=== PATIENT | male | born 1995 | race African-American/Black ===

== ENCOUNTER 2018-05-01 09:47 | Emergency (ER) | payer SELFPAY ==
[~2018-05-01] VITALS: Ht 180.3 cm; Wt 108.0 kg
[2018-05-01] MEDS ORDERED: Ketorolac 60mg Inj IM ONE (10:15)
[2018-05-01] MEDS ORDERED: CYCLOBENZAPRINE10 MG ORAL (10:23)
[2018-05-01] MEDS ORDERED: LIDOCAINE700 M1 TP (10:23)
[2018-05-01 10:43] VITALS: BP 127/65
--- NOTE | 2018-05-01 12:18 | Emergency Room Report ---
History of Present Illness General Chief Complaint: Lower Extremity Injury Source: Significant Other Present Illness HPI Patient is a 23-year-old male brought in by self after increased left-sided lower extremity pain as well as low back pain. Patient reported having injury several days ago in which he was bending down in the shower and subsequently felt a pop in his back. He reports having increased discomfort to his back as well as to his left leg. Patient reported having recent antibiotic use after sore throat. He denies any fever. He denies any weakness to his extremities. Patient had been reportedly drinking alcohol heavily intermittently. He denies any weight loss. He denies any bowel or bladder dysfunction. Allergies: Coded Allergies: No Known Allergies (Unverified , 05/01/18) Patient History Past Medical History: see triage record Reviewed Nursing Documentation: PMH: Agreed; PSxH: Agreed Nursing Documentation-PMH Past Medical History: No Stated History Review of Systems All Other Systems: negative except mentioned in HPI Physical Exam Vital Signs Date Time Temp Pulse Resp B/P (MAP) Pulse Ox O2 Delivery O2 Flow Rate FiO2 05/01/18 09:53 98.6 99 18 127/65 99 Room Air 98.6 General Appearance: well appearing, no apparent distress, alert, GCS 15 Head: normocephalic, atraumatic ENT: hearing grossly normal, normal voice Neck: full range of motion, supple Respiratory: no respiratory distress, speaking full sentences Cardiovascular #1: normal inspection, no edema Gastrointestinal: normal inspection, normal bowel sounds, non tender, soft Musculoskeletal: normal inspection, back normal, no calf tenderness Neurologic: normal inspection, alert, oriented x3, responsive, edi consultant III-XII nml as tested, motor strength/tone normal, normal gait Psychiatric: mood/affect normal Skin: no rash Medical Decision Making Diagnostic Impression: Primary Impression: Sciatica Additional Impression: Alcohol abuse ER Course Patient presented for low back pain. Differential diagnosis included but was not limited to herniated disc, cauda equina syndrome, abdominal aortic aneurysm , perforated ulcer, spinal epidural abscess, spinal stenosis, lumbar fracture, metastatic lesion, pyelonephritis. Patient was advised that he may need outpatient MRI. Patient was advised to return if he began having fever bowel or bladder dysfunction. Patient was given prescription for lidocaine as well as ibuprofen. The patient is advised to follow up with primary care doctor in 1-2 days. Patient is advised to return if any worsening condition or if any changes in status that are concerning. This report is dictated with [employer] engineer software which may occasionally lead to discrepancies related to use of this software. Last Vital Signs Date Time Temp Pulse Resp B/P (MAP) Pulse Ox O2 Delivery O2 Flow Rate FiO2 05/01/18 10:43 98.6 78 18 127/65 99 Room Air 209.5 Status: improved Disposition: HOME, SELF-CARE Condition: Stable Scripts Lidocaine (Lidocaine) 1 Each Adh..patch 5 % TP DAILY, #30 PATCH Prov: Jorge Salazar MD 05/01/18 Cyclobenzaprine Hcl* (FLEXERIL*) 10 Mg Tablet 10 MG ORAL TID PRN for Muscle Spasm, #20 TAB Prov: Jorge Salazar MD 05/01/18 Patient Instructions: Sciatica With Rehab-[facility] Jorge Salazar MD May 01, 2018 12:18
== END 2018-05-01 10:47 | disposition home or self-care (01) ==
LOC: EMR 10:12
DX: M54.30 Sciatica, unspecified side (principal); F10.10 Alcohol abuse, uncomplicated
CPT/HCPCS: 96372; 99283

== ENCOUNTER 2018-07-12 07:07 | Emergency (ER) | payer SELFPAY ==
[~2018-07-12] VITALS: Ht 180.3 cm; Wt 93.0 kg
[~2018-07-12 07:07] MED LIST: CYCLOBENZAPRINE10 MG ORAL; LIDOCAINE700 M1 TP
[2018-07-12] MEDS ORDERED: IBUPROFEN600 MG ORAL (07:26)
[2018-07-12 07:37] VITALS: BP 144/80
[2018-07-12 07:39] VITALS: BP 144/80
--- NOTE | 2018-07-12 08:10 | Emergency Room Report ---
History of Present Illness General Chief Complaint: General Complaint Source: Patient Present Illness HPI 23-year-old male presents ED for evaluation. States that he dislocated his shoulder this morning while sleeping. Brought in by EMS. History of recurrent shoulder dislocations. States he dislocated his shoulder 14 times previously. Pain is dull, 6 out of 10, nonradiating. Denies any recent injury. No other aggravating relieving factors. Denies any other associated symptoms Allergies: Coded Allergies: No Known Allergies (Unverified , 05/01/18) Patient History Past Medical History: none Past Surgical History: none Pertinent Family History: none Social History: Denies: smoking, alcohol use, drug use Immunizations: UTD Reviewed Nursing Documentation: PMH: Agreed; PSxH: Agreed Nursing Documentation-PMH Past Medical History: No Stated History Review of Systems All Other Systems: negative except mentioned in HPI Physical Exam Vital Signs Date Time Temp Pulse Resp B/P (MAP) Pulse Ox O2 Delivery O2 Flow Rate FiO2 07/12/18 06:47 98.6 93 18 144/86 98 Room Air 98.6 Sp02 EP Interpretation: reviewed, normal General Appearance: no apparent distress, alert, GCS 15, non-toxic Head: normocephalic Eyes: bilateral eye normal inspection, bilateral eye PERRL ENT: normal ENT inspection Neck: normal inspection Respiratory: normal inspection Cardiovascular #1: normal inspection Gastrointestinal: normal inspection Rectal: deferred Genitourinary: no CVA tenderness Musculoskeletal: decreased range of motion, tender - L shoulder deformity noted Neurologic: alert, oriented x3, responsive, motor strength/tone normal, sensory intact, speech normal Psychiatric: normal inspection Skin: normal inspection Lymphatic: normal inspection Procedures Splinting Splinting : Consent: Verbal Pre-Made Type: shoulder immobilizer Pre-Proc Neuro Vasc Exam: normal Post-Proc Neuro Vasc Exam: normal Patient Tolerated: Well Complications: None Medical Decision Making Diagnostic Impression: Primary Impression: Shoulder dislocation, recurrent Qualified Codes: M24.412 - Recurrent dislocation, left shoulder ER Course Hospital Course 23-year-old male presents to ED complaining of L shoulder pain Differential diagnoses include: Fracture, dislocation, sprain, contusion Clinical course Patient placed on stretcher. After initial history, exam reveals a male in no acute distress. There is deformity to the left shoulder with palpable gap in the glenoid region. Limited range of motion noted. No sensory deficits X-rays ordered, plan for procedural sedation to reduce the shoulder Before x-ray could be completed patient states the shoulder reduced by itself. States this happens often as he has had multiple dislocations. There is now full range of motion. Placed in shoulder immobilizer. We'll provide orthopedic referral as patient will likely need operative correction for his shoulder Diagnosis - shoulder recurrent dislocation Stable and discharged to home with prescription for Motrin. Followup with ortho. Return to ED if symptoms recur or worsen Last Vital Signs Date Time Temp Pulse Resp B/P (MAP) Pulse Ox O2 Delivery O2 Flow Rate FiO2 07/12/18 07:39 98.6 86 18 144/80 99 Room Air 98.6 Status: improved Disposition: HOME, SELF-CARE Condition: Stable Scripts Ibuprofen* (MOTRIN*) 600 Mg Tablet 600 MG ORAL Q8H PRN for For Pain, #30 TAB 0 Refills Prov: Kyler Holland MD 07/12/18 Referrals: NOT CHOSEN IPA/,REFERRING (PCP) Patient Instructions: Shoulder Dislocation, [id number] Kyler Holland MD Jul 12, 2018 08:10
== END 2018-07-12 07:30 | disposition home or self-care (01) ==
LOC: EDBD 07:07 → EMR 07:25
DX: M24.412 Recurrent dislocation, left shoulder (principal)
CPT/HCPCS: 29105; 99283